=== PATIENT | female | born 1995 | race Caucasian/White ===

== ENCOUNTER 2024-11-21 17:14 | Outpatient (CLI) | payer OTHER, SELFPAY ==
--- NOTE | 2024-11-21 17:30 | CRLHL7_ITS ---
For Patients: As a result of the Cures Act, medical imaging exams and procedure reports are released immediately into your electronic medical record. You may view this report before your referring provider. If you have questions, please contact your health care provider. OBSTETRICAL ULTRASOUND TRANSVAGINAL CLINICAL INDICATION: Dating and viability. LMP: 09/25/2024 JOSE ALFREDO by LMP: 07/02/2025 Gestational age: 8 weeks 1 day PREVIOUS ULTRASOUND: No TECHNIQUE: Real-time figueroa-scale imaging of the fetus was performed transvaginal. Transvaginal imaging was performed for better visualization of the endometrium and ovaries. FINDINGS: CRL: 1.9 cm, 8 weeks 3 days; JOSE ALFREDO 06/30/2025 heart rate: 176 BPM Gestational sac: 4.1 cm, appears within normal limits Yolk sac: 3.2 mm, appears within normal limits Right ovary: 3.4 x 2.0 x 1.5 cm Left ovary: Not visualized IMPRESSION: Single living intrauterine measures 8 weeks 3 days with sonographic due date of 06/30/2025. LEOBARDO ARCE M.D. Diagnostic Radiologist [email or web address] Transcribed: 9:[address]/Dictated by: Leobardo Arce MD @ 11/22/2024 8:36:00 AM (Electronically Signed)
== END 2024-11-21 17:15 | disposition home or self-care (01) ==
LOC: US 17:14
PROVIDERS: Visit Provider Physician Assistant
DX: Z34.91 Encounter for supervision of normal pregnancy, unspecified, first trimester (principal); Z3A.08 8 weeks gestation of pregnancy
CPT/HCPCS: 76817; 83021; 86592; 86703; 86704; 86706; 86762; 86787; 86803; 86850; 86900; 86901; 87086; 87340; 87491; 87591

== ENCOUNTER 2024-11-21 18:25 | Outpatient (CLI) | payer OTHER, SELFPAY ==
[2024-11-21 22:41] LABS: Chlamydia DNA Amplified* NOT DETECTED (No Detected); GC DNA Amplified* NOT DETECTED (No Detected)
== END 2024-11-21 18:26 | disposition home or self-care (01) ==
PROVIDERS: Visit Provider Physician Assistant
DX: Z34.91 Encounter for supervision of normal pregnancy, unspecified, first trimester (principal); Z3A.08 8 weeks gestation of pregnancy
CPT/HCPCS: 83020; 83021; 85660; 86592; 86703; 86704; 86706; 86762; 86787; 86803; 86850; 86900; 86901; 87086; 87340; 87491; 87591

== ENCOUNTER 2024-12-22 10:47 | Outpatient (CLI) | payer OTHER, SELFPAY ==
[2024-12-22 11:33] LABS: Appearance Urine Cloudy (Clear)
== END 2024-12-22 10:48 | disposition home or self-care (01) ==
LOC: NFLDREF 10:49
PROVIDERS: Visit Provider Midwife
DX: O99.891 Other specified diseases and conditions complicating pregnancy (principal); R82.71 Bacteriuria
CPT/HCPCS: 81001; 81003; 87086

== ENCOUNTER 2025-01-19 11:47 | Outpatient (CLI) | payer OTHER, SELFPAY | END 2025-01-19 11:48 | disposition home or self-care (01) | LOC: NFLDREF 11:48 | PROVIDERS: Visit Provider Advanced Practice Midwife | DX: R82.71 Bacteriuria (principal); O99.892 Other specified diseases and conditions complicating childbirth | CPT/HCPCS: 81511; 87086 ==